=== PATIENT | male | born 1965 | race American Indian/Alaskan Native ===

== ENCOUNTER 2020-08-07 15:36 | Emergency (ER) | payer BC ==
--- NOTE | 2020-08-07 15:46 | Event Note ---
ED Screening Note ED Screening Note: ill appearing male co fatigue cool and tachypnic on exam in triage report weight loss chills cough This initial assessment/diagnostic orders/clinical plan/treatment(s) is/are subject to change based on patients health status, clinical progression and re- assessment by fellow clinical providers in the ED. Further treatment and workup at subsequent clinical providers discretion. Patient/guardian urged not to elope from the ED as their condition may be serious if not clinically assessed and managed. Initial orders include: xr/ct 12 lead lab ua
--- NOTE | 2020-08-07 16:18 | XRay Report ---
XR chest routine 2V INDICATION / CLINICAL INFORMATION: Weakness COMPARISON: None available. FINDINGS: SUPPORT DEVICES: None. HEART / MEDIASTINUM: No significant abnormality. LUNGS / PLEURA: Lungs are clear. Costophrenic sulci are sharp. No pneumothorax. ADDITIONAL FINDINGS: No significant additional findings. IMPRESSION: 1. No acute findings. Signer Name: Ari Diamond MD Signed: 08/07/2020 4:13 PM Workstation Name: [email or web address]
--- NOTE | 2020-08-07 16:23 | Cat Scan Report ---
CT head/brain wo con INDICATION / CLINICAL INFORMATION: 55 years Male; dizzy. TECHNIQUE: Routine CT head without contrast. All CT scans at this location are performed using CT dos e reduction for ALARA by means of automated exposure control. COMPARISON: None. FINDINGS: BRAIN / INTRACRANIAL CONTENTS: There is moderate cerebral white matter disease most consistent with m icrovascular angiopathy. Is also mild cerebral atrophy. The ventricular system is correspondingly emilee ropriate in size and configuration. There are foci of calcification within the basal ganglia bilatera lly. There is no clear CT evidence of acute intracranial hemorrhage or significant mass effect. ORBITS: No significant abnormality of visualized orbits. SINUSES / MASTOIDS: No significant abnormality in the visualized paranasal sinuses or mastoid air lissy ls. CRANIOCERVICAL JUNCTION: No significant abnormality. ADDITIONAL FINDINGS: None. IMPRESSION: 1. There is moderate microvascular angiopathy and mild cerebral atrophy as described without CT evide nce of acute intracranial hemorrhage. Signer Name: Andres Wynn MD Signed: 08/07/2020 4:18 PM Workstation Name: [id number]
[2020-08-07 16:28] LABS: Basophils % (Auto) 0.3 % (0.0-1.8); Eosinophils # (Auto) 0.1 K/mm3 (0.0-0.4); Eosinophils % (Auto) 0.5 % (0.0-4.3); Hematocrit 34.6 % (35.5-45.6); Lymphocytes % (Auto) 9.7 % (13.4-35.0); Mean Corpuscular HGB Conc 35 % (32-34); Mean Corpuscular Volume 102 fl (84-94); Monocytes # (Auto) 1.1 K/mm3 (0.0-0.8); Monocytes % (Auto) 10.9 % (0.0-7.3); Platelet Count 196 K/mm3 (140-440); Red Blood Count 3.39 M/mm3 (3.65-5.03); Red Cell Distribution Width 15.4 % (13.2-15.2)
[2020-08-07 16:55] LABS: Albumin 4.6 g/dL (3.9-5); Calcium 9.2 mg/dL (8.4-10.2)
[2020-08-07] MEDS ORDERED: SODIUM CHLORIDE 0.9% 1000 ML 1,000 ML IV ONE ×2 (18:31)
--- NOTE | 2020-08-07 18:34 | Emergency Department Report ---
ED Shortness of Breath HPI - General Chief Complaint: Dizziness Stated Complaint: DOES NOT FEEL WELL Time Seen by Provider: 08/07/20 15:40 Source: patient Mode of arrival: Ambulatory Limitations: No Limitations - History of Present Illness Initial Comments: Patient is a 55-year-old F Fijian male with no known significant past medical history who is presenting with 3 days of fatigue. Patient states he is been weak and fatigued. Has had a nonproductive cough as well with shortness of breath especially with exertion. Patient denies nausea vomiting diarrhea headache or neck stiffness. Patient has no known exposures to COVID-19. - Related Data Previous Rx's Medication Instructions Recorded Last Taken Type Albuterol Mdi (or & Nicu Only) 2 puff IH QID PRN #1 inhalation 08/07/20 Unknown Rx [ProAir HFA Inhaler] Azithromycin [Zithromax Z-CHRIS] 250 mg PO DAILY #6 tablet 08/07/20 Unknown Rx Benzonatate [Tessalon Perles] 100 mg PO Q8HR #10 capsule 08/07/20 Unknown Rx predniSONE 10 mg PO .TAPER #21 tab 08/07/20 Unknown Rx Allergies Allergy/AdvReac Type Severity Reaction Status Date / Time No Known Allergies Allergy Unverified 05/24/15 17:09 ED Review of Systems ROS: Stated complaint: DOES NOT FEEL WELL Other details as noted in HPI Comment: All other systems reviewed and negative ED Past Medical Hx - Past Medical History Additional medical history: ETOH abuse - Surgical History Past Surgical History?: No - Social History Smoking Status: Current Every Day Smoker Substance Use Type: Alcohol - Medications Home Medications: Home Medications Medication Instructions Recorded Confirmed Last Taken Type Albuterol Mdi (or & Nicu Only) 2 puff IH QID PRN #1 inhalation 08/07/20 Unknown Rx [ProAir HFA Inhaler] Azithromycin [Zithromax Z-CHRIS] 250 mg PO DAILY #6 tablet 08/07/20 Unknown Rx Benzonatate [Tessalon Perles] 100 mg PO Q8HR #10 capsule 08/07/20 Unknown Rx predniSONE 10 mg PO .TAPER #21 tab 08/07/20 Unknown Rx ED Physical Exam - General Limitations: No Limitations General appearance: alert, in no apparent distress - Head Head exam: Present: atraumatic, normocephalic - Eye Eye exam: Present: normal appearance, PERRL, EOMI - ENT ENT exam: Present: normal orophraynx, mucous membranes moist - Neck Neck exam: Present: normal inspection - Respiratory Respiratory exam: Present: normal lung sounds bilaterally. Absent: respiratory distress, wheezes, rales, rhonchi - Cardiovascular Cardiovascular Exam: Present: normal rhythm, tachycardia, normal heart sounds. Absent: systolic murmur, diastolic murmur, rubs, gallop - GI/Abdominal GI/Abdominal exam: Present: soft, normal bowel sounds. Absent: distended, tenderness, guarding, rebound - Rectal Rectal exam: Present: deferred - Extremities Exam Extremities exam: Present: normal inspection - Back Exam Back exam: Present: normal inspection - Neurological Exam Neurological exam: Present: alert, oriented X3 - Psychiatric Psychiatric exam: Present: normal affect, normal mood - Skin Skin exam: Present: warm, dry, intact, normal color. Absent: rash ED Course Vital Signs 08/07/20 08/07/20 15:44 20:32 Temperature 98.8 F 98.5 F Pulse Rate 68 94 H Respiratory 18 18 Rate Blood Pressure 130/93 Blood Pressure 158/106 [Left] O2 Sat by Pulse 96 Oximetry ED Medical Decision Making - Lab Data Result diagrams: 08/07/20 16:17 08/07/20 16:17 Lab Results 08/07/20 08/07/20 08/07/20 Range/Units 16:17 16:17 16:17 WBC 10.0 (4.5-11.0) K/mm3 RBC 3.39 L (3.65-5.03) M/mm3 Hgb 12.0 (11.8-15.2) gm/dl Hct 34.6 L (35.5-45.6) % MCV 102 H (84-94) fl MCH 35 H (28-32) pg MCHC 35 H (32-34) % RDW 15.4 H (13.2-15.2) % Plt Count 196 (140-440) K/mm3 Lymph % (Auto) 9.7 L (13.4-35.0) % Frio % (Auto) 10.9 H (0.0-7.3) % Eos % (Auto) 0.5 (0.0-4.3) % Baso % (Auto) 0.3 (0.0-1.8) % Lymph # (Auto) 1.0 L (1.2-5.4) K/mm3 Frio # (Auto) 1.1 H (0.0-0.8) K/mm3 Eos # (Auto) 0.1 (0.0-0.4) K/mm3 Baso # (Auto) 0.0 (0.0-0.1) K/mm3 Seg Neutrophils % 78.6 H (40.0-70.0) % Seg Neutrophils # 7.9 H (1.8-7.7) K/mm3 D-Dimer 314.21 H (0-234) ng/mlDDU Sodium 128 L (137-145) mmol/L Potassium 3.8 (3.6-5.0) mmol/L Chloride 92.2 L (98-107) mmol/L Carbon Dioxide 22 (22-30) mmol/L Anion Gap 18 mmol/L BUN 23 H (9-20) mg/dL Creatinine 1.6 H (0.8-1.3) mg/dL Estimated GFR 54 ml/min BUN/Creatinine Ratio 14 % Glucose 123 H (75-100) mg/dL Lactic Acid (0.7-2.0) mmol/L Calcium 9.2 (8.4-10.2) mg/dL Magnesium (1.7-2.3) mg/dL Total Bilirubin 0.70 (0.1-1.2) mg/dL AST 29 (5-40) units/L ALT 13 (7-56) units/L Alkaline Phosphatase 104 (35-129) units/L Total Creatine Kinase (55-170) units/L Troponin T (0.00-0.029) ng/mL C-Reactive Protein (0.00-1.30) mg/dL Total Protein 8.4 H (6.3-8.2) g/dL Albumin 4.6 (3.9-5) g/dL Albumin/Globulin Ratio 1.2 % TSH (0.270-4.200) mlU/mL 08/07/20 08/07/20 08/07/20 Range/Units 16:17 16:17 16:17 WBC (4.5-11.0) K/mm3 RBC (3.65-5.03) M/mm3 Hgb (11.8-15.2) gm/dl Hct (35.5-45.6) % MCV (84-94) fl MCH (28-32) pg MCHC (32-34) % RDW (13.2-15.2) % Plt Count (140-440) K/mm3 Lymph % (Auto) (13.4-35.0) % Frio % (Auto) (0.0-7.3) % Eos % (Auto) (0.0-4.3) % Baso % (Auto) (0.0-1.8) % Lymph # (Auto) (1.2-5.4) K/mm3 Frio # (Auto) (0.0-0.8) K/mm3 Eos # (Auto) (0.0-0.4) K/mm3 Baso # (Auto) (0.0-0.1) K/mm3 Seg Neutrophils % (40.0-70.0) % Seg Neutrophils # (1.8-7.7) K/mm3 D-Dimer (0-234) ng/mlDDU Sodium (137-145) mmol/L Potassium (3.6-5.0) mmol/L Chloride (98-107) mmol/L Carbon Dioxide (22-30) mmol/L Anion Gap mmol/L BUN (9-20) mg/dL Creatinine (0.8-1.3) mg/dL Estimated GFR ml/min BUN/Creatinine Ratio % Glucose (75-100) mg/dL Lactic Acid 2.00 (0.7-2.0) mmol/L Calcium (8.4-10.2) mg/dL Magnesium 1.60 L (1.7-2.3) mg/dL Total Bilirubin (0.1-1.2) mg/dL AST (5-40) units/L ALT (7-56) units/L Alkaline Phosphatase (35-129) units/L Total Creatine Kinase 104 (55-170) units/L Troponin T < 0.010 (0.00-0.029) ng/mL C-Reactive Protein (0.00-1.30) mg/dL Total Protein (6.3-8.2) g/dL Albumin (3.9-5) g/dL Albumin/Globulin Ratio % TSH 1.150 (0.270-4.200) mlU/mL 08/07/20 Range/Units 16:17 WBC (4.5-11.0) K/mm3 RBC (3.65-5.03) M/mm3 Hgb (11.8-15.2) gm/dl Hct (35.5-45.6) % MCV (84-94) fl MCH (28-32) pg MCHC (32-34) % RDW (13.2-15.2) % Plt Count (140-440) K/mm3 Lymph % (Auto) (13.4-35.0) % Frio % (Auto) (0.0-7.3) % Eos % (Auto) (0.0-4.3) % Baso % (Auto) (0.0-1.8) % Lymph # (Auto) (1.2-5.4) K/mm3 Frio # (Auto) (0.0-0.8) K/mm3 Eos # (Auto) (0.0-0.4) K/mm3 Baso # (Auto) (0.0-0.1) K/mm3 Seg Neutrophils % (40.0-70.0) % Seg Neutrophils # (1.8-7.7) K/mm3 D-Dimer (0-234) ng/mlDDU Sodium (137-145) mmol/L Potassium (3.6-5.0) mmol/L Chloride (98-107) mmol/L Carbon Dioxide (22-30) mmol/L Anion Gap mmol/L BUN (9-20) mg/dL Creatinine (0.8-1.3) mg/dL Estimated GFR ml/min BUN/Creatinine Ratio % Glucose (75-100) mg/dL Lactic Acid (0.7-2.0) mmol/L Calcium (8.4-10.2) mg/dL Magnesium (1.7-2.3) mg/dL Total Bilirubin (0.1-1.2) mg/dL AST (5-40) units/L ALT (7-56) units/L Alkaline Phosphatase (35-129) units/L Total Creatine Kinase (55-170) units/L Troponin T (0.00-0.029) ng/mL C-Reactive Protein 10.60 H (0.00-1.30) mg/dL Total Protein (6.3-8.2) g/dL Albumin (3.9-5) g/dL Albumin/Globulin Ratio % TSH (0.270-4.200) mlU/mL - Radiology Data [facility] [address] [place] [address] XRay Report Signed Patient: KELLY OLIVER MR#: [id number] [birth year] : 1965 Acct:[id number] Age/Sex: 55 / M ADM Date: 08/07/20 Loc: ED Attending Dr: Ordering Physician: ARCADIO ANN Date of Service: 08/07/20 Procedure(s): XR chest routine 2V Accession Number(s): [id number] cc: ARCADIO ANN Fluoro Time In Minutes: XR chest routine 2V INDICATION / CLINICAL INFORMATION: Weakness COMPARISON: None available. FINDINGS: SUPPORT DEVICES: None. HEART / MEDIASTINUM: No significant abnormality. LUNGS / PLEURA: Lungs are clear. Costophrenic sulci are sharp. No pneumothorax. ADDITIONAL FINDINGS: No significant additional findings. IMPRESSION: 1. No acute findings. Signer Name: Ari Diamond MD Signed: 08/07/2020 4:13 PM Workstation Name: [id number] CT head/brain wo con INDICATION / CLINICAL INFORMATION: 55 years Male; dizzy. TECHNIQUE: Routine CT head without contrast. All CT scans at this location are performed using CT dose reduction for ALARA by means of automated exposure control. COMPARISON: None. FINDINGS: BRAIN / INTRACRANIAL CONTENTS: There is moderate cerebral white matter disease most consistent with microvascular angiopathy. Is also mild cerebral atrophy. The ventricular system is correspondingly appropriate in size and configuration. There are foci of calcification within the basal ganglia bilaterally. There is no clear CT evidence of acute intracranial hemorrhage or significant mass effect. ORBITS: No significant abnormality of visualized orbits. SINUSES / MASTOIDS: No significant abnormality in the visualized paranasal sinuses or mastoid air cells. CRANIOCERVICAL JUNCTION: No significant abnormality. ADDITIONAL FINDINGS: None. IMPRESSION: 1. There is moderate microvascular angiopathy and mild cerebral atrophy as described without CT evidence of acute intracranial hemorrhage. Signer Name: Andres Wynn MD Signed: 08/07/2020 4:18 PM Workstation Name: [id number] Transcribed By: MR Dictated By: Andres Wynn MD Electronically Authenticated By: Andres Wynn MD Signed Date/Time: 08/07/20 1618 CTA CHEST WITH IV CONTRAST INDICATION: Elevated d-dimer, cough, shortness of breath. TECHNIQUE: Axial CT images were obtained through the chest after injection of 100 cc Omnipa que 300 IV contrast. 3 plane MIP reconstructions were produced. All CT scans at this location are performed using CT dose reduction for ALARA by means of automated exposure control. COMPARISON: None available. FINDINGS: Pulmonary Arteries: No pulmonary emboli. Lungs: There is moderate emphysema. There are patchy peripheral lower lobe predominant groundglass opacities. Trachea and Bronchi: No significant abnormality. Heart and Pericardium: No significant abnormality. Vasculature: No significant abnormality. Lymphatics: No lymphadenopathy. Additional Findings: None. Upper Abdomen: There are multiple fluid collections in the pancreas, with the largest measuring 4.3 cm. Skeletal Structures: No acute findings or aggressive bone lesions. IMPRESSION: 1. No CT evidence for pulmonary embolism. 2. Patchy peripheral lower lobe predominant groundglass opacities that can indicate viral pneumonia. 3. Multiple fluid collections in the pancreas that may indicate pancreatic pseudocysts. CT of the abdomen without and with IV contrast is recommended for further evaluation. Signer Name: Dwight Wu MD Signed: 08/07/2020 7:52 PM Workstation Name: [id number] - Medical Decision Making Patient's chest x-ray was within normal limits however CT angiogram did show groundglass opacities bilateral bases. No evidence of pulmonary embolus despite the elevated D-dimer. Patient was tachycardic and showed evidence of some dehydration. He was given some IV fluids and states he feels better. Because the groundglass opacities and probable COVID-19 diagnosis we did ambulate the patient here in emergency department. His O2 sats remained 99% and the patient did not seem significantly short of breath. Patient be criteria for outpatient treatment. He can obtain outpatient formal testing for COVID-19 and will be given medication for symptomatic relief. Critical care attestation.: If time is entered above; I have spent that time in minutes in the direct care of this critically ill patient, excluding procedure time. ED Disposition Clinical Impression: Suspected COVID-19 virus infection, Dehydration Pneumonia Qualifiers: Pneumonia type: due to unspecified organism Laterality: bilateral Lung location: lower lobe of lung Qualified Code(s): J18.9 - Pneumonia, unspecified organism Disposition: DC-01 TO HOME OR SELFCARE Is pt being admited?: No Does the pt Need Aspirin: No Condition: Stable Instructions: Bacterial Pneumonia (ED), Dehydration, Adult, Ellk-uc-Somh, Community-Acquired Pneumonia, Adult, COVID-19 Frequently Asked Questions, COVID- 19: How to Protect Yourself and Others - [facility], Prevent the Spread of COVID-19 if You Are Sick - [facility] Additional Instructions: Please obtain outpatient testing for COVID-19 Referrals: PRIMARY CAREMD [Primary Care Provider] - 3-5 Days MEDFORD SAI YUAN MD [Referring] - 3-5 Days Time of Disposition: 20:57
--- NOTE | 2020-08-07 19:57 | Cat Scan Report ---
CTA CHEST WITH IV CONTRAST INDICATION: Elevated d-dimer, cough, shortness of breath. TECHNIQUE: Axial CT images were obtained through the chest after injection of 100 cc Omnipaque 300 IV contrast. 3 plane MIP reconstructions were produced. All CT scans at this location are performed using CT dose reduction for ALARA by means of automated exposure control. COMPARISON: None available. FINDINGS: Pulmonary Arteries: No pulmonary emboli. Lungs: There is moderate emphysema. There are patchy peripheral lower lobe predominant groundglass op acities. Trachea and Bronchi: No significant abnormality. Heart and Pericardium: No significant abnormality. Vasculature: No significant abnormality. Lymphatics: No lymphadenopathy. Additional Findings: None. Upper Abdomen: There are multiple fluid collections in the pancreas, with the largest measuring 4.3 c m. Skeletal Structures: No acute findings or aggressive bone lesions. IMPRESSION: 1. No CT evidence for pulmonary embolism. 2. Patchy peripheral lower lobe predominant groundglass opacities that can indicate viral pneumonia. 3. Multiple fluid collections in the pancreas that may indicate pancreatic pseudocysts. CT of the abd omen without and with IV contrast is recommended for further evaluation. Signer Name: Dwight Wu MD Signed: 08/07/2020 7:52 PM Workstation Name: [id number]
[2020-08-07 21:15] VITALS: BP 128/92
== END 2020-08-07 21:10 | disposition home or self-care (01) ==
LOC: ED 15:36
DX: J18.9 Pneumonia, unspecified organism (principal); Z20.828 Contact with and (suspected) exposure to other viral communicable diseases; E86.0 Dehydration; F17.200 Nicotine dependence, unspecified, uncomplicated; Z79.2 Long term (current) use of antibiotics; Z79.899 Other long term (current) drug therapy
CPT/HCPCS: 36415; 70450; 71046; 71275; 80053; 82140; 82550; 83735; 84145; 84443; 84484; 85025; 85379; 86140; 93005; 96360; 99284; J7030; Q9967

== ENCOUNTER 2021-02-06 07:31 | Emergency (ER) | payer SELFPAY ==
[2021-02-06 09:23] VITALS: BP 137/102
[2021-02-06] MEDS ORDERED: ASPIRIN 325 MG TAB PO ONE (09:24)
[2021-02-06 09:42] LABS: Basophils # (Auto) 0.1 K/mm3 (0.0-0.1); Eosinophils # (Auto) 0.3 K/mm3 (0.0-0.4); Eosinophils % (Auto) 5.1 % (0.0-4.3); Hematocrit 35.2 % (35.5-45.6); Lymphocytes # (Auto) 1.6 K/mm3 (1.2-5.4); Lymphocytes % (Auto) 30.9 % (13.4-35.0); Mean Corpuscular HGB Conc 34 % (32-34); Mean Corpuscular Volume 104 fl (84-94); Monocytes # (Auto) 0.5 K/mm3 (0.0-0.8); Monocytes % (Auto) 10.7 % (0.0-7.3); Platelet Count 200 K/mm3 (140-440); Red Blood Count 3.37 M/mm3 (3.65-5.03); Red Cell Distribution Width 15.6 % (13.2-15.2)
--- NOTE | 2021-02-06 10:05 | XRay Report ---
CHEST 2 VIEWS INDICATION / CLINICAL INFORMATION: Chest pain. COMPARISON: 08/07/20. FINDINGS: SUPPORT DEVICES: None. HEART / MEDIASTINUM: The heart size and pulmonary vasculature are normal. The aorta is normal in eric loan. LUNGS / PLEURA: No significant pulmonary or pleural abnormality. No pneumothorax. ADDITIONAL FINDINGS: No significant additional findings. IMPRESSION: No acute abnormality or significant change. Signer Name: Delgado Espinoza MD Signed: 02/06/2021 10:01 AM Workstation Name: [id number]
[2021-02-06 10:06] LABS: Alanine Aminotransferase 22 units/L (7-56); Albumin 4.3 g/dL (3.9-5); Blood Urea Nitrogen 9 mg/dL (9-20); Calcium 9.1 mg/dL (8.4-10.2); Hemolysis Index 10
[2021-02-06 10:17] LABS: BUN/Creatinine Ratio 13
--- NOTE | 2021-02-06 10:28 | Event Note ---
ED Screening Note Date of service: 02/06/21 Time: 10:27 ED Screening Note: 55-year-old -Burm[place] male presents to the emergency room complaining of 2-week history of chest pain and was off today so he decided to come to the emergency room to be evaluated. Patient also reports 1 month history of right lower foot numbness and pain. Patient is able to ambulate. Patient smokes cigarettes and drinks alcohol. Patient reports his feet feel little bit better when he does not have shoes on as he feels that she is may be too tight. This initial assessment/diagnostic orders/clinical plan/treatment(s) is/are subject to change based on patients health status, clinical progression and re- assessment by fellow clinical providers in the ED. Further treatment and workup at subsequent clinical providers discretion. Patient/guardian urged not to elope from the ED as their condition may be serious if not clinically assessed and managed. Initial orders include:
--- NOTE | 2021-02-09 10:56 | Electrocardiograph Report ---
[facility] Test Date: 2021-02-06 Test Time: 09:25:07 Pat Name: KELLY OLIVER Department: Room: Gender: M [employer] Supervisor: CLT : 1965 Requested By: JUANITO DEL ANGEL Order Number: [id number] Reading MD: Yvon Julian Measurements Intervals [place] Rate: 81 P: 83 MT: 191 QRS: 50 QRSD: 90 T: 77 QT: 406 QTc: 473 Interpretive Statements Sinus rhythm Probable left atrial enlargement Anteroseptal infarct, age indeterminate No previous ECG available for comparison Electronically Signed On 02-09-2021 10:55:57 EDT by Yvon Julian
== END 2021-02-06 09:30 | disposition left against medical advice (07) ==
LOC: ED 07:31
DX: R07.9 Chest pain, unspecified (principal); R20.0 Anesthesia of skin; Z53.21 Procedure and treatment not carried out due to patient leaving prior to being seen by health care provider
CPT/HCPCS: 36415; 71046; 80053; 84484; 85025; 93005